=== PATIENT | male | born 1970 | race Caucasian/White ===

== ENCOUNTER 2022-03-23 06:47 | Inpatient (IN) | payer MEDICAID, SELFPAY ==
[2022-03-23 07:05] VITALS: BP 150/98; PULSE 122; RESP 16; TEMP 37; O2SAT 97; BMI 45.6
--- NOTE | 2022-03-23 07:48 | ED.C_ITS ---
HPI - Psych General: Chief Complaint: Psychiatric Symptoms Stated Complaint: SI Time Seen by Provider: 03/23/22 06:55 Source: patient Mode of arrival: ambulatory Limitations: no limitations History of Present Illness: 51-year-old male presents emergency room with complaints of depression generally not feeling well and suicidal ideation. He states he is having some paranoid thoughts he recognizes them but they are disturbing to him. He has previously been seen in outpatient setting and was prescribed medications but he is never had them filled or taken them. Patient has had problems with methamphetamine and marijuana use in the past but its been 2 to 3 weeks since he is last used. He is known diabetic he also has a history of having had a pacemaker placed. Between his medical issues and his substance abuse he has not been able to keep his job which is contributed to his sense of worthlessness and his suicidal ideation. MD complaint: suicidal ideation Onset (ago): day(s) Duration: constant History of same: Yes Relieving factors: none Exacerbating factors: drug use Context: recent drug abuse Associated psychiatric symptoms: depression and suicidal ideation Associated symptoms: Reports auditory hallucinations, visual hallucinations, depression and suicidal ideation; Deny delusions or homicidal ideation Treatments prior to arrival: none If self harm: admits thoughts of self harm Review of Systems Const: Denies: fever(s), chills, body aches, change in appetite, fatigue or malaise ENMT: Denies: throat pain, ear or mastoid pain, nasal discharge or nasal congestion Card: Denies: chest pain, edema, dyspnea on exertion or orthopnea Resp: Denies: dyspnea, productive cough or non-productive cough GI: Denies: abdominal pain, nausea, vomiting, hematemesis, coffee ground emesis, diarrhea, constipation, bloating, hematochezia or melena : Denies: flank pain, dysuria, urinary frequency or urinary urgency Skin/Breast: Denies: rash or pruritus Psych: Reports: depression, visual hallucinations, auditory hallucinations and suicidal ideation; Denies: homicidal ideation [facility] PFSH: Medical History (Updated 04/04/22 @ 11:54 by Cristino Whelan DO) Diabetes mellitus Hyperlipidemia Hypertension Psychiatric care Social History (Updated 04/04/22 @ 11:53 by Cristino Whelan DO) Smoking and tobacco status: current every day smoker Alcohol intake: current Substance/Drug Use: current Substance/Drug use type: Methamphetamine Physical Exam Const: COMMON NORMALS: no acute distress GENERAL APPEARANCE: cooperative and comfortable ORIENTATION/CONSCIOUSNESS: Yes awake, Yes oriented to person, Yes oriented to place and Yes oriented to time HENMT: COMMON NORMALS: normocephalic, atraumatic, hearing grossly normal bilaterally, external ears normal, EAC's normal, TM's normal bilaterally, Normal nasal mucous membranes and turbinates present, moist oral mucous membranes and oropharynx normal HEAD & SCALP: normocephalic and atraumatic NOSE: Normal nasal mucous membranes and turbinates present EXTERNAL EAR: Yes external ears normal EXTERNAL AUDITORY CANAL: EAC's normal TYMPANIC MEMBRANE: TM's normal bilaterally Eye: COMMON NORMALS: Equal, round and reactive pupils present, EOMs intact bilaterally, conjunctivae normal and no scleral icterus CONJUNCTIVA: Yes conjunctivae normal PUPIL: Yes Equal, round and reactive pupils present Neck/C-Spine: COMMON NORMALS: full ROM, no lymphadenopathy, supple and no JVD Lymph: LYMPHATIC: no lymphadenopathy noted and no lymphedema noted Resp: COMMON NORMALS: normal respiratory effort, No retractions, No use of accessory muscles and clear to auscultation bilaterally AUSCULTATION: clear to auscultation bilaterally Cardio: COMMON NORMALS: no JVD, regular rate, regular rhythm and No murmurs present (Cardio) RATE: regular rate RHYTHM: regular rhythm GI: COMMON NORMALS: Soft to palpation and No hepatosplenomegaly present AUSCULTATION: Yes normoactive bowel sounds PALPATION: Yes Soft to palpation, No Tenderness to palpation present (GI), No Guarding due to palpation present (GI) and Yes No hepatosplenomegaly present Extremity: COMMON NORMALS: normal to inspection, capillary refill normal, no clubbing, cyanosis or edema, no calf tenderness and no pedal edema Neuro: SENSORIUM/ORIENTATION: Yes oriented to person, Yes oriented to place and Yes oriented to time Psych: THOUGHT CONTENT: No delusions Skin: COMMON NORMALS: no rashes or lesions noted GENERAL SKIN EXAM: no rashes or lesions noted Course Vital Signs: Vital signs: Vital Signs Temperature 98.0 F 03/27/22 06:00 Pulse Rate 100 03/27/22 06:00 Respiratory Rate 18 03/27/22 06:00 Blood Pressure 131/71 03/27/22 09:42 Pulse Oximetry 95 03/27/22 06:00 Oxygen Delivery Me thod 03/27/22 06:00 MDM - Psych Medical Decision Making Discussed with psychiatry on-call will admit for suicidal ideation, drug-induced psychosis. Medical Records I reviewed the patient's medical records. Lab Data I reviewed the patient's lab results. : 03/23/22 07:54 03/23/22 07:54 Laboratory Results WBC 9.8 10^3/uL (4.0-10.0) 03/23/22 07:54 RBC 6.23 10^6/uL (4.1-5.3) H 03/23/22 07:54 Hgb 16.7 g/dL (11.7-16.6) H 03/23/22 07:54 Hct 54.3 % (42.0-52.0) H 03/23/22 07:54 MCV 87.2 fl (80-94) 03/23/22 07:54 MCH 26.8 pg (28.0-34.0) L 03/23/22 07:54 MCHC 30.8 g/dL (30.0-36.0) 03/23/22 07:54 RDW 13.8 % (12.1-15.1) 03/23/22 07:54 Plt Count 295 10^3/cmm (130-400) 03/23/22 07:54 MPV 10.2 fL (7.4-10.4) 03/23/22 07:54 Neut % (Auto) 64.5 % 03/23/22 07:54 Lymph % (Auto) 23.6 % 03/23/22 07:54 Boyle % (Auto) 6.7 % 03/23/22 07:54 Eos % (Auto) 3.9 % 03/23/22 07:54 Baso % (Auto) 0.7 % 03/23/22 07:54 Neut # (Auto) 6.30 10^3/uL (1.8-7.7) 03/23/22 07:54 Lymph # (Auto) 2.3 10^3/uL (0.8-4.8) 03/23/22 07:54 Boyle # (Auto) 0.7 10^3/uL (0.2-0.9) 03/23/22 07:54 Eos # (Auto) 0.4 10^3/uL (0.0-0.8) 03/23/22 07:54 Baso # (Auto) 0.1 10^3/uL (0.0-0.1) 03/23/22 07:54 Nucleated RBC % (auto) 0 % 03/23/22 07:54 Nucleated RBCs # 0.0 /100WBC 03/23/22 07:54 Sodium 141 mmol/L (136-145) 03/23/22 07:54 Potassium 4.3 mmol/L (3.5-5.1) 03/23/22 07:54 Chloride 103 mmol/L (98-107) 03/23/22 07:54 Carbon Dioxide 27 mmol/L (22-29) 03/23/22 07:54 Anion Gap 15.3 (5-19) 03/23/22 07:54 BUN 18 mg/dL (6-20) 03/23/22 07:54 Creatinine 0.7 mg/dL (0.7-1.2) 03/23/22 07:54 GFR Calculation 118.9 mL/min (90-130) 03/23/22 07:54 Glucose 148 mg/dL (65-115) H 03/23/22 07:54 Calculated Osmolality 297 mOsm/kg (285-295) H 03/23/22 07:54 Calcium 9.8 mg/dL (8.5-10.5) 03/23/22 07:54 Total Bilirubin 0.4 mg/dL (0.15-1.2) 03/23/22 07:54 AST 16 U/L (0-40) 03/23/22 07:54 ALT 16 U/L (0-41) 03/23/22 07:54 Alkaline Phosphatase 113 IU/L (40-130) 03/23/22 07:54 Total Protein 7.6 g/dL (6.6-8.7) 03/23/22 07:54 Albumin 4.7 g/dL (3.5-5.2) 03/23/22 07:54 Globulin 2.9 g/dL (1.3-4.6) 03/23/22 07:54 Salicylates < 0.3 mg/dL (3-10) L 03/23/22 07:54 Acetaminophen < 5.0 ug/mL (10-30) L 03/23/22 07:54 Ethyl Alcohol < 10 mg/dL (0-10) 03/23/22 07:54 Discharge Plan Discharge Patient Disposition: Admitted As Inpatient Admit Provider: Mikie Hunt Clinical Impression: Suicidal ideation Condition: Stable Discharge Diet: Advance as tolerated Discharge Activity: Resume usual activity Coding Level of Care Code ED Tipple Mechanic for Jhoan Hinojosa
[2022-03-23 08:11] VITALS: BP 180/114; PULSE 101; RESP 18; TEMP 36.6; O2SAT 94
[2022-03-23 08:12] LABS: Basophils # 0.1 10^3/uL (0.0-0.1); Basophils % 0.7 %; Eosinophils # 0.4 10^3/uL (0.0-0.8); Eosinophils % 3.9 %; Hematocrit 54.3 % (42.0-52.0); Hemoglobin 16.7 g/dL (11.7-16.6); Lymphocytes # 2.3 10^3/uL (0.8-4.8); Lymphocytes % 23.6 %; Mean Corpuscular HGB Conc 30.8 g/dL (30.0-36.0); Mean Corpuscular Hemoglobin 26.8 pg (28.0-34.0); Mean Corpuscular Volume 87.2 fl (80-94); Mean Platelet Volume 10.2 fL (7.4-10.4); Monocytes # 0.7 10^3/uL (0.2-0.9); Monocytes % 6.7 %; Neutrophils % 64.5 %; Nucleated Red Blood Cells % 0 %; Platelet Count 295 10^3/cmm (130-400); Red Blood Count 6.23 10^6/uL (4.1-5.3); Red Cell Distribution Width 13.8 % (12.1-15.1); White Blood Count 9.8 10^3/uL (4.0-10.0)
[2022-03-23 08:35] LABS: Alanine Aminotransferase 16 U/L (0-41); Albumin Level 4.7 g/dL (3.5-5.2); Alkaline Phosphatase 113 IU/L (40-130); Anion Gap 15.3 (5-19); Aspartate Amino Transferase 16 U/L (0-40); Blood Urea Nitrogen 18 mg/dL (6-20); Calcium 9.8 mg/dL (8.5-10.5); Carbon Dioxide 27 mmol/L (22-29); Chloride 103 mmol/L (98-107); Globulin 2.9 g/dL (1.3-4.6); Glomerular Filtration Rate 118.9 mL/min (90-130); Glucose 148 mg/dL (65-115); Osmolality Calculated 297 mOsm/kg (285-295); Potassium 4.3 mmol/L (3.5-5.1); Sodium 141 mmol/L (136-145); Total Bilirubin 0.4 mg/dL (0.15-1.2); Total Protein 7.6 g/dL (6.6-8.7)
[2022-03-23] MEDS: hyDRALAzine 20 mg/mL INJ 1 mL IM (08:37)
[2022-03-23] MEDS: amlodipine 10 mg Tablet PO (08:38)
[2022-03-23 08:40] LABS: Acetaminophen < 5.0 ug/mL (10-30); Alcohol Level < 10 mg/dL (0-10); Salicylate < 0.3 mg/dL (3-10)
--- NOTE | 2022-03-23 08:45 | PC.PHAR ---
pt states maybe not taken meds for about 2 months-notes are made in the pharmacy comments with last days filled and d/s
[2022-03-23 09:00] VITALS: BP 182/119; PULSE 101; RESP 16
--- NOTE | 2022-03-23 09:14 | PC.NURSE ---
Report called to Rick on NPU floor. Denied questions at time of report.
[2022-03-23 09:23] VITALS: BP 118/83; PULSE 111
[2022-03-23] MEDS: acetaminophen 325 mg Tablet 650 MG PO (10:33)
[2022-03-23] MEDS: nicotine 2 mg Gum BUCCAL ×3 (10:33→18:02)
[2022-03-23] MEDS: hyDROXYzine 25 mg Capsule 50 MG PO (10:33)
--- NOTE | 2022-03-23 10:49 | PC.NURSE ---
PRN VISTARIL 50 MG GIVEN PO PER PT C/O ANXIETY, TEARFUL UPON ADMIT
[2022-03-23 12:15] LABS: Amphetamines Screen Urine Negative (Negative); Barbiturates Screen Urine Negative (Negative); Benzodiazepines Screen Urine Negative (Negative); Cocaine Screen Urine Negative (Negative); Opiate Screen Urine Negative (Negative); PCP Screen Urine Negative (Negative); THC Screen Urine Positive (Negative)
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
[2022-03-23] MEDS: OLANZapine 5 mg ODT PO (13:21)
[2022-03-23 14:00] VITALS: BP 145/85; PULSE 105; RESP 20; TEMP 37; O2SAT 95
[2022-03-23] MEDS: sertraline 50 mg Tablet 25 MG PO (18:55)
[2022-03-23 20:38] VITALS: BP 107/57; PULSE 97; RESP 18; O2SAT 92
[2022-03-24 05:53] VITALS: BP 116/86; PULSE 84; RESP 19; O2SAT 95
[2022-03-24] MEDS: sertraline 50 mg Tablet 25 MG PO (08:40)
[2022-03-24 08:45] VITALS: BP 147/86
[2022-03-24] MEDS: losartan 50 mg Tablet PO (08:45)
[2022-03-24] MEDS: carvedilol 25 mg Tablet PO ×2 (08:45→17:29)
[2022-03-24] MEDS: metformin 500 mg Tablet PO ×2 (08:45→17:29)
[2022-03-24] MEDS: FUROsemide 20 mg Tablet PO (08:51)
[2022-03-24] MEDS: nicotine 2 mg Gum BUCCAL ×2 (11:36→16:22)
--- NOTE | 2022-03-24 12:42 | W.PM.NPUPNS ---
Subjective NPU Subjective: Brad is a 51-year-old white male with a history of suicidal ideation and worsening depression along with posttraumatic stress disorder admitted with continued anhedonia, anergia, and worsening medical issues. The patient reported low energy and low motivation. He continued to report depressed mood. He reported some sense of hopelessness. He did report some issues with sleep continuity disruption. He continued to endorse symptoms strongly suggestive of sleep apnea with excessive daytime sleepiness. He reports not feeling rested when he wakes up in the morning. He continued to lament about his financial predicament. He reports that he has difficulties with managing his worry. He continues to endorse having nightmares and reports having flashbacks regarding previous trauma he endorsed using methamphetamine to help with his low energy. He reports feeling ashamed that he cannot manage his finances. Mental Status Exam MSE Comments: He is a casually dressed overweight white male with a clear umbilical hernia appreciated during the interview. He had a somewhat nelly complexion. There was evidence of psychomotor retardation. His mood was describd as depressed. His affect was mood congruent and restricted in range. He was alert and oriented to person place and time. His hygiene appeared adequate. There was no there was no evidence of any abnormal tics or tremors, or involuntary motor movements. His speech was normal in regards to rate rhythm and prosody. His attention span appeared fair. He endorsed passive suicidal ideation with no active plan or intent. There was no evidence of homicidal ideation. His insight was fair. His judgment is poor. His impulse control was poor. Vitals/I&O/Wt Last Vital Signs Temp 98 F 03/24/22 14:00 Pulse 95 03/24/22 14:00 Resp 17 03/24/22 14:00 BP 150/95 03/24/22 14:00 Pulse Ox 94 03/24/22 14:00 O2 Del Method 03/23/22 09:24 Weight last 48 hrs Weight 136.078 kg Data NPU : 03/23/22 07:54 03/23/22 07:54 A&P Assessment and plan (1) Major depressive disorder: Status: Acute (2) Suicidal ideation: Status: Acute (3) Methamphetamine abuse: Status: Acute (4) PTSD (post-traumatic stress disorder): Status: Acute (5) Suicidal ideation: Status: Acute Plan Brad is a 51 year old male with a history of recent onset of multiple serious medical issues, some chronic and permanent that has been exacerbating his current financial stress along with increased stress for not being the primary provider for his household. His depression appears overwhelming and his lack of motivation has led to a spiraling of symptoms. 1. To-15 minute checks 2. Attempt to gather collateral information 3. Engage patient in individual, milieu and group therapy 4. Increase zoloft 50mg daily to target depression and anxiety and add seroquel 50mg at night to target depression. 5. Restart other primary care medications. Involuntary Hold Information 96 Hour Hold: 96 Hour Involuntary Admission: No Attestations NPU Medical Necessity Statement*: Psychiatric hospitalization is medically necessary to prevent access to lethal means, to reevaluate medication and to coordinate a safe discharge.? The patient will be hospitalized with likely length of stay is 3-6 days.? ? Coding Level of Care Code Established Pt Acute Furnace Door Tender for Jhoan Hinojosa Patient Type Established History Problem Focused Exam Problem Focused Medical Decision Making Straight Forward Diagnoses Major depressive disorder F32.9 Suicidal ideation R45.851 Methamphetamine abuse F15.10 PTSD (post-traumatic stress disorder) F43.10 Suicidal ideation R45.851
[2022-03-24 14:00] VITALS: BP 150/95; PULSE 95; RESP 17; TEMP 36.6; O2SAT 94
[2022-03-24 20:57] VITALS: BP 134/74; PULSE 96; RESP 18; O2SAT 95
[2022-03-24] MEDS: quetiapine 25 mg Tablet 50 MG PO (21:25)
[2022-03-24] MEDS: atorvastatin 40 mg Tablet PO (21:25)
[2022-03-25 06:00] VITALS: BP 122/67; PULSE 99; RESP 16; TEMP 36.6; O2SAT 95
[2022-03-25 09:43] VITALS: BP 122/67
[2022-03-25] MEDS: sertraline 50 mg Tablet PO (09:43)
[2022-03-25] MEDS: carvedilol 25 mg Tablet PO ×2 (09:43→18:35)
[2022-03-25] MEDS: metformin 500 mg Tablet PO ×2 (09:43→18:35)
[2022-03-25] MEDS: losartan 50 mg Tablet PO (09:43)
[2022-03-25] MEDS: FUROsemide 20 mg Tablet PO (09:44)
[2022-03-25] MEDS: nicotine 21 mg Patch 1 PATCH TRANSDERMA (09:46)
[2022-03-25 14:00] VITALS: BP 148/91; PULSE 88; RESP 18; TEMP 36.6; O2SAT 93
--- NOTE | 2022-03-25 14:35 | W.PM.NPUPNS ---
Subjective NPU Subjective: Brad is a 51-year-old white male with a history of suicidal ideation and worsening depression along with posttraumatic stress disorder admitted with continued anhedonia, anergia, and worsening medical issues. The patient reports continued depressed mood but reports that groups have been helpful for managing his moods. He continued to report complaints of excessive fatigue and low energy. He had reported not feeling rested in the morning. He had also reported having occasional nightmares and flashbacks regarding his previous trauma. He reported no side effects from his medication. Staff notes the patient has been engaged in the milieu while attending groups.The patient reports having some suicidal thoughts but reports that the frequency of these thoughts have been decreasing. Mental Status Exam MSE Comments: He is a casually dressed overweight white male with a clear umbilical hernia appreciated during the interview. He had a somewhat nelly complexion. There was evidence of mild psychomotor retardation. His mood was described as depressed. His affect was mood congruent and restricted in range. He was alert and oriented to person place and time. His hygiene appeared adequate. There was no there was no evidence of any abnormal tics or tremors, or involuntary motor movements. His speech was normal in regards to rate rhythm and prosody. His attention span appeared fair. He endorsed passive suicidal ideation with no active plan or intent. There was no evidence of homicidal ideation. His insight was fair. His judgment is poor. His impulse control was poor. Vitals/I&O/Wt Last Vital Signs Temp 98 F 03/25/22 14:00 Pulse 88 03/25/22 14:00 Resp 18 03/25/22 14:00 BP 148/91 03/25/22 14:00 Pulse Ox 93 03/25/22 14:00 O2 Del Method 03/25/22 14:00 Weight last 48 hrs Weight 138.799 kg Data NPU : 03/23/22 07:54 03/23/22 07:54 A&P Assessment and plan (1) Major depressive disorder: Status: Acute (2) Suicidal ideation: Status: Acute (3) Methamphetamine abuse: Status: Acute (4) PTSD (post-traumatic stress disorder): Status: Acute (5) Suicidal ideation: Status: Acute Plan Brad is a 51 year old male with a history of recent onset of multiple serious medical issues, some chronic and permanent that has been exacerbating his current financial stress along with increased stress for not being the primary provider for his household. His depression appears overwhelming and his lack of motivation has led to a spiraling of symptoms. 1. To-15 minute checks 2. Attempt to gather collateral information 3. Engage patient in individual, milieu and group therapy 4. Increase zoloft 75mg daily to target depression and anxiety and increase seroquel to 100mg at night to target depression. 5. Restart other primary care medications. Involuntary Hold Information 96 Hour Hold: 96 Hour Involuntary Admission: No Attestations NPU Medical Necessity Statement*: Psychiatric hospitalization is medically necessary to prevent access to lethal means, to reevaluate medication and to coordinate a safe discharge.? The patient will be hospitalized with likely length of stay is 3-6 days.? ? Coding Level of Care Code Established Pt Acute Site Surveyor for Jhoan Hinojosa Patient Type Established History Problem Focused Exam Problem Focused Medical Decision Making Straight Forward Diagnoses Major depressive disorder F32.9 Suicidal ideation R45.851 Methamphetamine abuse F15.10 PTSD (post-traumatic stress disorder) F43.10 Suicidal ideation R45.851
[2022-03-25] MEDS: trazodone 50 mg Tablet PO (20:12)
[2022-03-25] MEDS: atorvastatin 40 mg Tablet PO (20:12)
[2022-03-25] MEDS: acetaminophen 325 mg Tablet 650 MG PO (20:13)
[2022-03-25] MEDS: quetiapine 100 mg Tablet PO (20:13)
[2022-03-25 21:28] VITALS: BP 115/77; PULSE 67; RESP 19; TEMP 36.6; O2SAT 95
[2022-03-26 06:00] VITALS: BP 123/85; PULSE 95; RESP 20; TEMP 37.4; O2SAT 93
[2022-03-26] MEDS: metformin 500 mg Tablet PO ×2 (08:21→17:28)
[2022-03-26] MEDS: losartan 50 mg Tablet PO (08:21)
[2022-03-26] MEDS: carvedilol 25 mg Tablet PO ×2 (08:21→20:05)
[2022-03-26] MEDS: FUROsemide 20 mg Tablet PO (08:21)
[2022-03-26] MEDS: sertraline 50 mg Tablet 75 MG PO (08:21)
[2022-03-26 14:00] VITALS: BP 125/74; PULSE 92; RESP 17; TEMP 36.9; O2SAT 93
--- NOTE | 2022-03-26 14:24 | P.NPUPN_ITS ---
Subjective NPU Subjective: Brad is a 51-year-old white male with a history of suicidal ideation and worsening depression along with posttraumatic stress disorder admitted with continued anhedonia, anergia, and worsening medical issues. He continues to show evidence of excessive daytime sleepiness often spending much of the afternoon tired and sleeping in bed. He had reported having continued complaints of low energy but reported some improvement in motivation. He has been attending groups. He had reported having less flashbacks and being able to sleep better at night. He had endorsed less feelings of hopelessness. He reported no side effects from the Seroquel or Zoloft. He reports improved ability to tolerate frustration. He had endorsed less thoughts of hurting self or others. Mental Status Exam MSE Comments: He is a casually dressed overweight white male with a clear umbilical hernia appreciated during the interview. He had a somewhat nelly complexion. There was evidence of mild psychomotor retardation. His mood was described as better. His affect was brighter and mood congruent. He was alert and oriented to person place and time. His hygiene appeared adequate. There was no there was no evidence of any abnormal tics or tremors, or involuntary motor movements. His speech was normal in regards to rate rhythm and prosody. His attention span appeared variable at times. He endorsed passive suicidal ideation with no active plan or intent. There was no evidence of homicidal ideation. His insight was fair. His judgment was improving. His impulse control remained guarded. Vitals/I&O/Wt Last Vital Signs Temp 98.5 F 03/26/22 14:00 Pulse 92 03/26/22 14:00 Resp 17 03/26/22 14:00 BP 125/74 03/26/22 14:00 Pulse Ox 93 03/26/22 14:00 O2 Del Method 03/26/22 14:00 Weight last 48 hrs Weight 138.799 kg Data NPU : 03/23/22 07:54 03/23/22 07:54 A&P Assessment and plan (1) Major depressive disorder: Status: Acute (2) Suicidal ideation: Status: Acute (3) Methamphetamine abuse: Status: Acute (4) PTSD (post-traumatic stress disorder): Status: Acute (5) Suicidal ideation: Status: Acute Plan Brad is a 51 year old male with a history of recent onset of multiple serious medical issues, some chronic and permanent that has been exacerbating his current financial stress along with increased stress for not being the primary provider for his household. His depression appears overwhelming and his lack of motivation has led to a spiraling of symptoms. 1. To-15 minute checks 2. Attempt to gather collateral information 3. Engage patient in individual, milieu and group therapy 4. Increase zoloft 100mg daily to target depression and anxiety and continue seroquel to 100mg at night to target depression. 5. Restart other primary care medications 6. Referral for psychotherapy and medication management, likely d/c tommorow. Involuntary Hold Information 96 Hour Hold: 96 Hour Involuntary Admission: No Attestations NPU Medical Necessity Statement*: Psychiatric hospitalization is medically necessary to prevent access to lethal means, to reevaluate medication and to coordinate a safe discharge.? The patient will be hospitalized with likely length of stay is 1-2 days.? ? Coding Level of Care Code Established Pt Acute Three Dimensional Map Modeler for Jhoan Hinojosa Patient Type Established History Problem Focused Exam Problem Focused Medical Decision Making Straight Forward Diagnoses Major depressive disorder F32.9 Suicidal ideation R45.851 Methamphetamine abuse F15.10 PTSD (post-traumatic stress disorder) F43.10 Suicidal ideation R45.851
[2022-03-26] MEDS: nicotine 4 mg lozenge MUCOUS MEM ×2 (17:29→21:12)
[2022-03-26 20:00] VITALS: BP 177/92; PULSE 68; RESP 18; TEMP 36.7; O2SAT 98
[2022-03-26] MEDS: atorvastatin 40 mg Tablet PO (20:05)
[2022-03-26] MEDS: quetiapine 100 mg Tablet PO (20:05)
[2022-03-26 21:42] VITALS: BP 177/92; PULSE 68; RESP 18; TEMP 36.7; O2SAT 98
[2022-03-27 06:00] VITALS: BP 131/71; PULSE 100; RESP 18; TEMP 36.7; O2SAT 95
[2022-03-27 06:23] LABS: Glucose Point of Care 136 mg/dL (70-110)
[2022-03-27 09:05] VITALS: BP 131/71
[2022-03-27] MEDS: carvedilol 25 mg Tablet PO (09:05)
[2022-03-27] MEDS: losartan 50 mg Tablet PO (09:05)
[2022-03-27] MEDS: FUROsemide 20 mg Tablet PO (09:06)
[2022-03-27] MEDS: metformin 500 mg Tablet PO (09:06)
[2022-03-27] MEDS: sertraline 100 mg Tablet PO (09:08)
[2022-03-27] MEDS: nicotine 4 mg lozenge MUCOUS MEM (09:08)
--- NOTE | 2022-03-27 09:08 | P.NPUDS_ITS ---
Diagnoses at Discharge Discharge Diagnosis (1) Major depressive disorder: Status: Acute (2) Suicidal ideation: Status: Acute (3) Methamphetamine abuse: Status: Acute (4) PTSD (post-traumatic stress disorder): Status: Acute (5) Suicidal ideation: Status: Acute Reason for Visit Reason for Visit: SI Involuntary Hold Information 96 Hour Hold: 96 Hour Involuntary Admission: No Discharge Data Studies Completed and Pending: Laboratory Results WBC 9.8 10^3/uL (4.0- 10.0) 03/23/22 07:54 RBC 6.23 10^6/uL (4.1 -5.3) H 03/23/22 07:54 Hgb 16.7 g/dL (11.7-1 6.6) H 03/23/22 07:54 Hct 54.3 % (42.0-52.0 ) H 03/23/22 07:54 MCV 87.2 fl (80-94) 03/23/22 07:54 MCH 26.8 pg (28.0-34. 0) L 03/23/22 07:54 MCHC 30.8 g/dL (30.0-3 6.0) 03/23/22 07:54 RDW 13.8 % (12.1-15.1 ) 03/23/22 07:54 Plt Count 295 10^3/cmm (130 -400) 03/23/22 07:54 MPV 10.2 fL (7.4-10.4 ) 03/23/22 07:54 Neut % (Auto) 64.5 % 03/23/22 07:54 Lymph % (Auto) 23.6 % 03/23/22 07:54 Bonner % (Auto) 6.7 % 03/23/22 07:54 Eos % (Auto) 3.9 % 03/23/22 07:54 Baso % (Auto) 0.7 % 03/23/22 07:54 Neut # (Auto) 6.30 10^3/uL (1.8 -7.7) 03/23/22 07:54 Lymph # (Auto) 2.3 10^3/uL (0.8- 4.8) 03/23/22 07:54 Bonner # (Auto) 0.7 10^3/uL (0.2- 0.9) 03/23/22 07:54 Eos # (Auto) 0.4 10^3/uL (0.0- 0.8) 03/23/22 07:54 Baso # (Auto) 0.1 10^3/uL (0.0- 0.1) 03/23/22 07:54 Nucleated RBC % (a uto) 0 % 03/23/22 07:54 Nucleated RBCs # 0.0 /100WBC 03/23/22 07:54 Sodium 141 mmol/L (136-1 45) 03/23/22 07:54 Potassium 4.3 mmol/L (3.5-5 .1) 03/23/22 07:54 Chloride 103 mmol/L (98-10 7) 03/23/22 07:54 Carbon Dioxide 27 mmol/L (22-29) 03/23/22 07:54 Anion Gap 15.3 (5-19) 03/23/22 07:54 BUN 18 mg/dL (6-20) 03/23/22 07:54 Creatinine 0.7 mg/dL (0.7-1. 2) 03/23/22 07:54 GFR Calculation 118.9 mL/min (90- 130) 03/23/22 07:54 Glucose 148 mg/dL (65-115 ) H 03/23/22 07:54 POC Glucose 136 mg/dL (70-110 ) H 03/27/22 06:12 Calculated Osmolal ity 297 mOsm/kg (285- 295) H 03/23/22 07:54 Calcium 9.8 mg/dL (8.5-10 .5) 03/23/22 07:54 Total Bilirubin 0.4 mg/dL (0.15-1 .2) 03/23/22 07:54 AST 16 U/L (0-40) 03/23/22 07:54 ALT 16 U/L (0-41) 03/23/22 07:54 Alkaline Phosphata se 113 IU/L (40-130) 03/23/22 07:54 Total Protein 7.6 g/dL (6.6-8.7 ) 03/23/22 07:54 Albumin 4.7 g/dL (3.5-5.2 ) 03/23/22 07:54 Globulin 2.9 g/dL (1.3-4.6 ) 03/23/22 07:54 Salicylates < 0.3 mg/dL (3-10 ) L 03/23/22 07:54 Urine Opiates Scre en Negative ng/mL (N egative) 03/23/22 11:43 Acetaminophen < 5.0 ug/mL (10-3 0) L 03/23/22 07:54 Ur Barbiturates Sc reen Negative ng/mL (N egative) 03/23/22 11:43 Ur Phencyclidine S crn Negative ng/mL (N egative) 03/23/22 11:43 Ur Amphetamines Sc reen Negative ng/mL (N egative) 03/23/22 11:43 U Benzodiazepines Scrn Negative ng/mL (N egative) 03/23/22 11:43 Urine Cocaine Scre en Negative ng/mL (N egative) 03/23/22 11:43 U Marijuana (THC) Screen Positive ng/mL (N egative) H 03/23/22 11:43 Ethyl Alcohol < 10 mg/dL (0-10) 03/23/22 07:54 Vitals: Last Vital Signs Temp 98.0 F 03/27/22 06:00 Pulse 100 03/27/22 06:00 Resp 18 03/27/22 06:00 BP 131/71 03/27/22 09:05 Pulse Ox 95 03/27/22 06:00 O2 Del Method 03/27/22 06:00 Discharge Plan Discharge Patient Disposition: Home Condition: Stable Prescriptions: New sertraline 100 mg Tablet 100 mg PO DAILY 30 Days Qty: 30 1RF quetiapine 100 mg Tablet 100 mg PO BEDTIME 30 Days Qty: 30 1RF Continued losartan 50 mg tablet 50 mg PO DAILY metformin 500 mg tablet 500 mg PO BID carvedilol 25 mg tablet 25 mg PO BID furosemide 20 mg tablet 20 mg PO DAILY atorvastatin 20 mg tablet 40 mg PO BEDTIME 30 Days Qty: 0 0RF Discharge Orders: Discharge Order (Routine); Ordered 03/27/22 Ordered By: Mikie Hunt Referrals: [facility] [Other] Vocational Rehabilitation [Other] [facility] [facility] [Outside] Discharge Diet: Advance as tolerated Discharge Activity: Resume usual activity Patient Instructions: Opioid Safety Discharge Attestations NPU Time Spent in Discharge Care*: less than 30 min Specific Discharge Activities: Specific discharge activities: educating patient, educating and/or supporting family/caregiver, discussing with pcp/other providers, discussing with case liner/social workers/dc planners, documenting/other paperwork and evaluating patient/reviewing data Coding Level of Care Code Established Pt Acute Chg FW DC note Patient Type Established History Problem Focused Exam Problem Focused Medical Decision Making Straight Forward Diagnoses Major depressive disorder F32.9 Suicidal ideation R45.851 Methamphetamine abuse F15.10 PTSD (post-traumatic stress disorder) F43.10 Suicidal ideation R45.851
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
[2022-03-27 09:42] VITALS: BP 131/71
== END 2022-03-27 11:15 | disposition home or self-care (01) | DRG 881 ==
LOC: ER 07:50 → NP 09:32
PROVIDERS: Admitting Provider Psychiatry & Neurology Psychiatry; Emergency Provider Family Medicine; Visit Provider Psychiatry & Neurology Psychiatry
DX: F32.9 Major depressive disorder, single episode, unspecified (principal); R45.851 Suicidal ideations; F43.10 Post-traumatic stress disorder, unspecified; F41.9 Anxiety disorder, unspecified; F15.10 Other stimulant abuse, uncomplicated; F17.200 Nicotine dependence, unspecified, uncomplicated; R45.84 Anhedonia; G47.10 Hypersomnia, unspecified; E11.9 Type 2 diabetes mellitus without complications; I11.0 Hypertensive heart disease with heart failure; I50.9 Heart failure, unspecified; Z62.811 Personal history of psychological abuse in childhood; Z95.0 Presence of cardiac pacemaker; Z79.84 Long term (current) use of oral hypoglycemic drugs; Z63.79 Other stressful life events affecting family and household; Z59.01 Sheltered homelessness
CPT/HCPCS: 36416; 80053; 80306; 80307; 82962; 85025; 96372; 97150; 97165; 99285; J0360

== ENCOUNTER → 2022-05-11 08:59 | Outpatient (BNVA) | payer OTHER, SELFPAY | PROVIDERS: Visit Provider Nurse Practitioner Psychiatric/Mental Health | DX: Z03.89 Encounter for observation for other suspected diseases and conditions ruled out (principal); Z79.899 Other long term (current) drug therapy | CPT/HCPCS: 80061; 83036; 84439; 84443; 84481 ==